=== PATIENT | female | born 2005 | race Caucasian/White ===

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

== ENCOUNTER 2025-02-15 08:51 | Outpatient (CLI) | payer OTHER, MEDICAID, SELFPAY | END 2025-02-15 08:52 | disposition home or self-care (01) | LOC: NFLDREF 02-21 06:38 | PROVIDERS: PCP Family Medicine; Referring Provider Family Medicine; Visit Provider Physician Assistant | DX: R11.10 Vomiting, unspecified (principal); J03.90 Acute tonsillitis, unspecified; R11.0 Nausea; R42 Dizziness and giddiness | CPT/HCPCS: 87086 ==